=== PATIENT | male | born 1985 | race Caucasian/White ===

== ENCOUNTER 2020-04-14 02:35 | Emergency (ER) | payer SELFPAY ==
[~2020-04-14] VITALS: Ht 167.6 cm; Wt 59.0 kg
[2020-04-14] MEDS ORDERED: IBUPROFEN 600MG TABLET PO STA (03:00)
[2020-04-14 03:24] VITALS: BP 138/75
== END 2020-04-14 03:26 | disposition home or self-care (01) ==
LOC: ER 02:35
DX: S70.12XA Contusion of left thigh, initial encounter (principal); Y35.043A Legal intervention involving injury by rubber bullet, suspect injured, initial encounter; Y93.89 Activity, other specified; Y92.29 Other specified public building as the place of occurrence of the external cause; Z87.898 Personal history of other specified conditions
CPT/HCPCS: 99283

== ENCOUNTER 2021-10-21 11:20 | Emergency (ER) | payer SELFPAY ==
[~2021-10-21] VITALS: Ht 167.6 cm; Wt 60.0 kg
[2021-10-21] MEDS ORDERED: LORAZEPAM 2MG/ML CPJ IM STA (11:41)
[2021-10-21 12:32] LABS: BASOPHILS % 0.7 % (0.0-2.0); EOSINOPHILS % 0.2 % (0.0-5.0); HEMATOCRIT. 45.3 % (42.0-52.0); HEMOGLOBIN. 15.5 g/dL (14.0-18.0); LYMPHOCYTES % 15.2 % (20.0-50.0); MEAN CORPUSCULAR VOLUME 93.9 fL (80.0-94.0); MEAN PLATELET VOLUME 7.5 fl (7.4-10.4); MONOCYTES % 6.7 % (2.0-8.0); NEUTROPHILS % 77.2 % (40.0-76.0); PLATELET 377 x1000/uL (130-400); RED BLOOD CELL COUNT 4.83 mill/uL (4.7-6.1); RED CELL DISTRIBUTION WIDTH 13.3 % (11.6-14.6)
[2021-10-21 12:39] LABS: CHLORIDE 106 mEq/L (98-107)
[2021-10-21 12:42] LABS: CLARITY URINE CLEAR (CLEAR); COLOR URINE DARK YELLOW (YELLOW); KETONES URINE 2+ (NEGATIVE); LEUKOCYTE ESTERASE URINE NEGATIVE (NEGATIVE); NITRITE URINE NEGATIVE (NEGATIVE); OCCULT BLOOD URINE NEGATIVE (NEGATIVE); PH URINE 5.5 (4.5-8.0); PROTEIN URINE TRACE (NEGATIVE); SPECIFIC GRAVITY URINE 1.032 (1.005-1.030)
[2021-10-21 12:44] LABS: ETHANOL BLOOD < 10 mg/dL
[2021-10-21 13:22] LABS: *AMPHETAMINES SCREEN URINE PRESUMTIVE POSITIVE (NEGATIVE); *BARBITURATES SCREEN URINE NEGATIVE (NEGATIVE); *COCAINE SCREEN URINE NEGATIVE (NEGATIVE); CANNABINOID URINE SCREEN PRESUMTIVE POSITIVE (NEGATIVE)
[2021-10-21 13:24] LABS: *BENZODIAZEPINES SCREEN URINE NEGATIVE (NEGATIVE); METHADONE URINE SCREEN NEGATIVE (NEGATIVE); OPIATES URINE SCREEN NEGATIVE (NEGATIVE); PHENCYCLIDINE URINE SCREEN NEGATIVE (NEGATIVE)
[2021-10-22] MEDS ORDERED: RISPERIDONE 0.5MG TABLET PO SCH (10:00)
[2021-10-22 20:00] VITALS: BP 95/62
== END 2021-10-22 20:55 ==
LOC: ER 11:20
DX: F15.10 Other stimulant abuse, uncomplicated (principal); R45.851 Suicidal ideations; F16.10 Hallucinogen abuse, uncomplicated; Z75.1 Person awaiting admission to adequate facility elsewhere; Z20.822 Contact with and (suspected) exposure to COVID-19
CPT/HCPCS: 36415; 80053; 80305; 80307; 80320; 80329; 81003; 82962; 85025; 87426; 96372; 99285; C9803; J2060; U0003; U0005; G0480